=== PATIENT | male | born 1990 | race Caucasian/White ===

== ENCOUNTER 2018-11-10 02:50 | Emergency (ER) | payer SELFPAY ==
[2018-11-10 03:04] VITALS: BP 127/73
[2018-11-10] MEDS ORDERED: Ondansetron 4 MG/2 ML SDV IVPUSH ONE (03:20)
--- NOTE | 2018-11-10 03:25 | EDM.PDOC ---
ED HPI GENERAL MEDICAL PROBLEM - General Chief Complaint: Abdominal Pain Stated Complaint: VOMITING/DIARRHEA/FEVER Time Seen by Provider: 11/10/18 02:55 Source of Information: Reports: Patient History Limitations: Reports: No Limitations - History of Present Illness INITIAL COMMENTS - FREE TEXT/NARRATIVE: This is a 28-year-old male. Onset around 8 PM with explosive diarrhea and nausea and vomiting and abdominal cramps. He says he can't keep anything down really thirsty. He says before coming to the ER he had a fever of 102 at home but he didn't take anything when he got here his fever was 98.5. He says he has been having persistent diarrhea and nausea and vomiting since 8 PM that seems to be nonstop and he can't drink his fluids is wanting to. He denies any blood in the vomitus or the diarrhea. He denies any previous sore throat though it's sore now from the vomiting. He denies any nasal congestion. He says he ate some pizza tonight but doesn't think that was the problem. No cough. Abdominal Pain Score (Numeric/FACES): 9 - Related Data Allergies Allergy/AdvReac Type Severity Reaction Status Date / Time No Known Allergies Allergy Verified 11/10/18 03:03 Home Meds: Home Meds . [No Known Home Meds] 11/10/18 [History] Past Medical History - Past Health History Medical/Surgical History: Denies Medical/Surgical History Social & Family History - Family History Family Medical History: Noncontributory - Tobacco Use Smoking Status *Q: Current Every Day Smoker Years of Tobacco use: 10 Packs/Tins Daily: 0.1 - Caffeine Use Caffeine Use: Reports: Coffee - Recreational Drug Use Recreational Drug Use: No - Living Situation & Occupation Living situation: Reports: Occupation: Employed ED ROS GENERAL - Review of Systems Review Of Systems: See Below Constitutional: Reports: Fever, Chills, Malaise HEENT: Reports: No Symptoms Respiratory: Denies: Shortness of Breath, Cough Cardiovascular: Denies: Chest Pain Endocrine: Reports: No Symptoms GI/Abdominal: Reports: Abdominal Pain, Diarrhea, Nausea, Vomiting. Denies: Bloody Stool, Hematemesis : Reports: No Symptoms Musculoskeletal: Reports: No Symptoms Skin: Reports: No Symptoms Neurological: Reports: No Symptoms Psychiatric: Reports: No Symptoms Hematologic/Lymphatic: Reports: No Symptoms ED EXAM, GI/ABD - Physical Exam Exam: See Below Exam Limited By: No Limitations General Appearance: Alert, WD/WN, Mild Distress Eyes: Bilateral: Normal Appearance Ears: Normal External Exam Nose: Normal Inspection Throat/Mouth: Normal Inspection, Normal Lips, Normal Voice, No Airway Compromise Head: Normocephalic Neck: Supple Respiratory/Chest: No Respiratory Distress, Lungs Clear, Normal Breath Sounds Cardiovascular: Regular Rate, Rhythm, Tachycardia GI/Abdominal Exam: Soft, Other (Soreness of the abdomen, no masses no rebound no guarding is noted) Back Exam: Normal Inspection, Full Range of Motion Extremities: Normal Inspection, Normal Range of Motion Neurological: Alert, Oriented Psychiatric: Normal Affect, Normal Mood Skin Exam: Warm, Other (Slightly diaphoretic but he is under 3 blankets) Course - Vital Signs Last Recorded V/S: Last Vital Signs Temp 98.5 F 11/10/18 03:01 Pulse 115 H 11/10/18 03:01 Resp 16 11/10/18 03:01 BP 127/73 11/10/18 03:01 Pulse Ox 100 11/10/18 03:01 - Orders/Labs/Meds Orders: Active Orders 24 hr Category Date Time Status Chest 2V [CR] Stat Exams 11/10/18 03:19 Taken CULTURE STREP A CONFIRMATION [RM] Stat Lab 11/10/18 03:52 Results Rapid Strep w/culture conf [STREP SCRN A RAPID W CULT Lab 11/10/18 03:52 Results CONF] [RM] Stat Ondansetron [Zofran ODT] Med 11/10/18 06:41 Once 4 mg PO ONETIME ONE Sodium Chloride 0.9% [Normal Saline] 1,000 ml Med 11/10/18 03:30 Active IV ASDIRECTED Medication Orders Sodium Chloride (Normal Saline) 1,000 mls @ 1,000 mls/hr IV ASDIRECTED USMAN Last Admin: 11/10/18 03:42 Dose: 1,000 mls/hr Labs: Laboratory Tests 11/10/18 11/10/18 11/10/18 Range/Units 03:40 03:40 03:40 WBC 18.19 H (4.23-9.07) K/mm3 RBC 6.20 H (4.63-6.08) M/mm3 Hgb 18.7 H (13.7-17.5) gm/L Hct 54.1 H (40.1-51.0) % MCV 87.3 (79.0-92.2) fl MCH 30.2 (25.7-32.2) pg MCHC 34.6 (32.2-35.5) g/dl RDW Std Deviation 40.3 (35.1-43.9) fL Plt Count 306 (163-337) K/mm3 MPV 9.7 (9.4-12.3) fl Neut % (Auto) 86.8 H (34.0-67.9) % Lymph % (Auto) 4.4 L (21.8-53.1) % [place] % (Auto) 8.1 (5.3-12.2) % Eos % (Auto) 0.1 L (0.8-7.0) Baso % (Auto) 0.2 (0.1-1.2) % Neut # (Auto) 15.79 H (1.78-5.38) K/mm3 Lymph # (Auto) 0.80 L (1.32-3.57) K/mm3 [place] # (Auto) 1.48 H (0.30-0.82) K/mm3 Eos # (Auto) 0.01 L (0.04-0.54) K/mm3 Baso # (Auto) 0.04 (0.01-0.08) K/mm3 Manual Slide Review Abnormal smear Sodium 139 (136-145) mEq/L Potassium 3.8 (3.5-5.1) mEq/L Chloride 97 L (98-107) mEq/L Carbon Dioxide 26 (21-32) mEq/L Anion Gap 19.8 H (5-15) BUN 22 H (7-18) mg/dL Creatinine 1.6 H (0.7-1.3) mg/dL Est Cr Clr Drug Dosing 54.63 mL/min Estimated GFR (MDRD) 51 (>60) mL/min BUN/Creatinine Ratio 13.8 L (14-18) Glucose 135 H (74-106) mg/dL Lactic Acid 2.8 H (0.4-2.0) mmol/L Calcium 10.7 H (8.5-10.1) mg/dL Total Bilirubin 1.4 H (0.2-1.0) mg/dL AST 22 (15-37) U/L ALT 30 (16-63) U/L Alkaline Phosphatase 108 (46-116) U/L Total Protein 9.6 H (6.4-8.2) g/dl Albumin 5.4 H (3.4-5.0) g/dl Globulin 4.2 gm/dL Albumin/Globulin Ratio 1.3 (1-2) Urine Color (Yellow) Urine Appearance (Clear) Urine pH (5.0-8.0) Ur Specific [place] (1.005-1.030) Urine Protein (Negative) Urine Glucose (UA) (Negative) Urine Ketones (Negative) Urine Occult Blood (Negative) Urine Nitrite (Negative) Urine Bilirubin (Negative) Urine Urobilinogen (0.2-1.0) Ur Leukocyte Esterase (Negative) Urine RBC (0-5) /hpf Urine WBC (0-5) /hpf Ur Epithelial Cells (0-5) /hpf Urine Bacteria (FEW) /hpf Hyaline Casts (0-5) /lpf Urine Mucus (FEW) /hpf 11/10/18 Range/Units 04:54 WBC (4.23-9.07) K/mm3 RBC (4.63-6.08) M/mm3 Hgb (13.7-17.5) gm/L Hct (40.1-51.0) % MCV (79.0-92.2) fl MCH (25.7-32.2) pg MCHC (32.2-35.5) g/dl RDW Std Deviation (35.1-43.9) fL Plt Count (163-337) K/mm3 MPV (9.4-12.3) fl Neut % (Auto) (34.0-67.9) % Lymph % (Auto) (21.8-53.1) % [place] % (Auto) (5.3-12.2) % Eos % (Auto) (0.8-7.0) Baso % (Auto) (0.1-1.2) % Neut # (Auto) (1.78-5.38) K/mm3 Lymph # (Auto) (1.32-3.57) K/mm3 [place] # (Auto) (0.30-0.82) K/mm3 Eos # (Auto) (0.04-0.54) K/mm3 Baso # (Auto) (0.01-0.08) K/mm3 Manual Slide Review Sodium (136-145) mEq/L Potassium (3.5-5.1) mEq/L Chloride (98-107) mEq/L Carbon Dioxide (21-32) mEq/L Anion Gap (5-15) BUN (7-18) mg/dL Creatinine (0.7-1.3) mg/dL Est Cr Clr Drug Dosing mL/min Estimated GFR (MDRD) (>60) mL/min BUN/Creatinine Ratio (14-18) Glucose (74-106) mg/dL Lactic Acid (0.4-2.0) mmol/L Calcium (8.5-10.1) mg/dL Total Bilirubin (0.2-1.0) mg/dL AST (15-37) U/L ALT (16-63) U/L Alkaline Phosphatase (46-116) U/L Total Protein (6.4-8.2) g/dl Albumin (3.4-5.0) g/dl Globulin gm/dL Albumin/Globulin Ratio (1-2) Urine Color Dark yellow (Yellow) Urine Appearance Clear (Clear) Urine pH 5.5 (5.0-8.0) Ur Specific [place] 1.025 (1.005-1.030) Urine Protein 1+ H (Negative) Urine Glucose (UA) Negative (Negative) Urine Ketones 1+ H (Negative) Urine Occult Blood 2+ H (Negative) Urine Nitrite Negative (Negative) Urine Bilirubin 1+ H (Negative) Urine Urobilinogen 0.2 (0.2-1.0) Ur Leukocyte Esterase Negative (Negative) Urine RBC 0-5 (0-5) /hpf Urine WBC 0-5 (0-5) /hpf Ur Epithelial Cells Not seen (0-5) /hpf Urine Bacteria Few (FEW) /hpf Hyaline Casts 10-20 H (0-5) /lpf Urine Mucus Many H (FEW) /hpf Meds: Medications Generic Name Dose Route Start Last Admin Trade Name Freq PRN Reason Stop Dose Admin Sodium Chloride 1,000 mls @ 1,000 mls/hr 11/10/18 03:30 11/10/18 03:42 Normal Saline IV 1,000 mls/hr ASDIRECTED USMAN Administration Discontinued Medications Generic Name Dose Route Start Last Admin Trade Name Roxana PRN Reason Stop Dose Admin Sodium Chloride 1,000 mls @ 999 mls/hr 11/10/18 04:25 11/10/18 04:52 Normal Saline IV 11/10/18 05:25 999 mls/hr ONETIME ONE Administration Ondansetron HCl 4 mg 11/10/18 03:20 11/10/18 03:42 Zofran IVPUSH 11/10/18 03:21 4 mg ONETIME ONE Administration - Radiology Interpretation Free Text/Narrative:: Chest x-ray does not show any acute infiltrates - Re-Assessments/Exams Free Text/Narrative Re-Assessment/Exam: 11/10/18 05:37 Patient has been sleeping soundly since he got here he's had no nausea and vomiting and no diarrhea since entering the ER. I spoke to him regarding the chest x-ray as well as the lab results. He does appear to be dehydrated and I believe this white count is related to D margination from the nausea and the vomiting. 11/10/18 06:24 The patient is awoken and he is now drinking fluids stating he feels a ton better. He has not had any diarrhea he's had no more nausea and vomiting. 11/10/18 06:42 Patient is doing well he drank all the 16 ounces of water and says he feels good. His flu and strep test were negative. I'll send him home with 24 mg Zofran to use every 6 hours as needed for nausea. He knows to take it easy to rest and sleep today and to drink lots of fluids and avoid meats vegetables and cheese for at least 24-48 hours. Departure - Departure Time of Disposition: 06:43 Disposition: Home, Self-Care 01 Condition: Good Clinical Impression: Dehydration, moderate Nausea and vomiting Qualifiers: Vomiting type: unspecified Vomiting Intractability: non-intractable Qualified Code(s): R11.2 - Nausea with vomiting, unspecified Diarrhea Qualifiers: Diarrhea type: unspecified type Qualified Code(s): R19.7 - Diarrhea, unspecified - Discharge Information *PRESCRIPTION DRUG MONITORING PROGRAM REVIEWED*: Not Applicable *COPY OF PRESCRIPTION DRUG MONITORING REPORT IN PATIENT MU: Not Applicable Instructions: Nausea, Adult Referrals: PCP,None [Primary Care Provider] - Forms: ED Department Discharge Additional Instructions: Continue to rest and sleep as much as possible for the next 24 hours, continue to drink lots of fluids and water but no sodas or caffeine or coffee, use the Zofran every 6 hours as needed for nausea, you probably have a little more diarrhea but as long as you are drinking fluids that should not be a problem, no vegetables, meats or cheese for at least 24-48 hours since they are hard to digest and they will make you vomit, if your symptoms worsen and your vomiting and having diarrhea again return to the ER, follow-up with your family doctor later this week for recheck or return to the ER as needed - My Orders Last 24 Hours: My Active Orders 11/10/18 03:19 Chest 2V [CR] Stat 11/10/18 03:30 Sodium Chloride 0.9% [Normal Saline] 1,000 ml IV ASDIRECTED 11/10/18 03:52 CULTURE STREP A CONFIRMATION [RM] Stat Rapid Strep w/culture conf [STREP SCRN A RAPID W CULT CONF] [RM] Stat 11/10/18 06:41 Ondansetron [Zofran ODT] 4 mg PO ONETIME ONE - Assessment/Plan Last 24 Hours: My Active Orders 11/10/18 03:19 Chest 2V [CR] Stat 11/10/18 03:30 Sodium Chloride 0.9% [Normal Saline] 1,000 ml IV ASDIRECTED 11/10/18 03:52 CULTURE STREP A CONFIRMATION [RM] Stat Rapid Strep w/culture conf [STREP SCRN A RAPID W CULT CONF] [RM] Stat 11/10/18 06:41 Ondansetron [Zofran ODT] 4 mg PO ONETIME ONE
[2018-11-10] MEDS ORDERED: Sodium Chloride 0.9% 1,000 ML IV SCH (03:30)
[2018-11-10] MEDS ORDERED: Sodium Chloride 0.9% 1,000 ML IV ONE (04:25)
[2018-11-10] MEDS: Ondansetron 4 MG Tab.DIS PO ONE (06:50)
--- NOTE | 2018-11-10 15:36 | CR ---
Chest: Two views of the chest were obtained. Comparison: Prior chest x-ray of 05/15/15. Heart size and mediastinum are normal. Lungs are clear with no acute parenchymal change. Bony structures are unremarkable. Impression: 1. Nothing acute is seen on two-view chest x-ray. Diagnostic code #1
== END 2018-11-10 06:55 | disposition home or self-care (01) ==
LOC: JD.ED 02:50
DX: E86.0 Dehydration (principal); R19.7 Diarrhea, unspecified; R11.2 Nausea with vomiting, unspecified; F17.210 Nicotine dependence, cigarettes, uncomplicated
CPT/HCPCS: 36415; 71046; 80053; 81001; 83605; 85025; 87081; 87430; 87804; 96361; 96374; 99284; A9270; J2405; J7040

== ENCOUNTER 2021-04-18 05:24 | Emergency (ER) | payer SELFPAY ==
[2021-04-18 05:46] VITALS: BP 120/74; PULSE 81
--- NOTE | 2021-04-18 06:11 | EDM.PDOC ---
ED HPI GENERAL MEDICAL PROBLEM - General Chief Complaint: Cardiovascular Problem Stated Complaint: [facility] Time Seen by Provider: 04/18/21 05:38 Source of Information: Reports: Patient History Limitations: Reports: No Limitations - History of Present Illness INITIAL COMMENTS - FREE TEXT/NARRATIVE: Patient is a 30-year-old male who is incarcerated and while having breakfast in detention today felt nauseous and then was noted to become very pale and was feeling very lightheaded at which time they took his blood pressure with his systolic blood pressure being 77. Patient was recently restarted on prazosin which he takes for night terrors but is on a higher dose than what he was on previously. Patient has no symptoms currently and was able to walk in the emergency department without any lightheadedness or nausea. Patient has not had similar symptoms in the past. He denies having any abdominal pain or bloody or tarry stools. Onset: Today, Sudden Duration: Resolved Prior to Arrival Associated Symptoms: Reports: Other (Nausea with pallor and lightheadedness.) - Related Data Allergies Allergy/AdvReac Type Severity Reaction Status Date / Time No Known Allergies Allergy Verified 04/18/21 05:46 Home Meds: Home Meds Prazosin HCl [Prazosin] 2 mg PO DAILY 04/18/21 [History] QUEtiapine Fumarate [Seroquel] 50 mg PO DAILY 04/18/21 [History] Venlafaxine HCl [Venlafaxine ER] 37.5 mg PO DAILY 04/18/21 [History] Past Medical History - Past Health History Medical/Surgical History: Denies Medical/Surgical History Social & Family History - Family History Family Medical History: No Pertinent Family History - Tobacco Use Tobacco Use Status *Q: Current Every Day Tobacco User Years of Tobacco use: 18 Packs/Tins Daily: 1 Used Tobacco, but Quit: No Second Hand Smoke Exposure: No - Caffeine Use Caffeine Use: Reports: Tea - Recreational Drug Use Recreational Drug Use: Yes Drug Use in Last 12 Months: Yes Recreational Drug Type: Reports: Marijuana/Hashish, Methamphetamine Recreational Drug Use Frequency: Daily - Living Situation & Occupation Living situation: Reports: Occupation: Employed ED ROS GENERAL - Review of Systems Review Of Systems: Comprehensive ROS is negative, except as noted in HPI. ED EXAM, GENERAL - Physical Exam Exam: See Below Exam Limited By: No Limitations General Appearance: Alert, No Apparent Distress Throat/Mouth: Normal Oropharynx Head: Atraumatic, Normocephalic Neck: Normal Inspection Respiratory/Chest: No Respiratory Distress, Lungs Clear, Normal Breath Sounds Cardiovascular: Regular Rate, Rhythm, No JVD GI/Abdominal: Normal Bowel Sounds, Soft, Non-Tender, No Organomegaly, No Distention Back Exam: Normal Inspection Extremities: Normal Inspection Neurological: Alert, Oriented Psychiatric: Normal Affect, Normal Mood Skin Exam: Warm, Dry, Normal Color Course - Vital Signs Text/Narrative:: Patient's current blood pressure is 120/74. He is asymptomatic. I believe he had either a drug reaction to prazosin or more likely a vasovagal episode secondary to being nauseous while eating his breakfast. I am recommending he does not take another dose of the prazosin until he is is seen by his PCP. He may need to have multiple blood pressures taken during the day if he is continued on the prazosin. Last Recorded V/S: Last Vital Signs Temp 97.2 F 04/18/21 05:37 Pulse 81 04/18/21 05:37 Resp 18 04/18/21 05:37 BP 120/74 04/18/21 05:37 Pulse Ox 98 04/18/21 05:37 Departure - Departure Time of Disposition: 06:11 Disposition: DC/Tfer to Other 70 Reason for Transfer *Q: Other (Hypotension.) Condition: Good Clinical Impression: Vasovagal episode, Hypotension, Medication reaction Instructions: Hypotension Referrals: PCP,None [Primary Care Provider] - Additional Instructions: Hold your prazosin until seen by your PCP. If restarted on prazosin I am recommending that you have your blood pressure monitor 4 times a day until we are certain this is not a reaction to your medication. Return to ER symptoms are worse. Sepsis Event Note (ED) - Evaluation Sepsis Screening Result: No Definite Risk - Focused Exam Vital Signs: Vital Signs Temp Pulse Resp BP Pulse Ox 04/18/21 05:37 97.2 F 81 18 120/74 98
== END 2021-04-18 06:20 | disposition other institution (70) ==
LOC: JD.ED 05:24
DX: I95.9 Hypotension, unspecified (principal); F17.210 Nicotine dependence, cigarettes, uncomplicated
CPT/HCPCS: 99284

== ENCOUNTER 2022-05-13 15:19 | Emergency (ER) | payer SELFPAY ==
[2022-05-13 15:36] VITALS: BP 136/91; PULSE 96
== END 2022-05-13 17:00 | disposition left against medical advice (07) ==
LOC: JD.ED 15:19
DX: Z53.21 Procedure and treatment not carried out due to patient leaving prior to being seen by health care provider (principal)
CPT/HCPCS: 82947

== ENCOUNTER 2022-05-30 09:58 | Emergency (ER) | payer MEDICAID ==
[2022-05-30 11:30] LABS: CORONAVIRUS COVID-19 NAA NEGATIVE (NEGATIVE)
[2022-05-30 13:06] VITALS: BP 115/88; PULSE 82
== END 2022-05-30 13:00 | disposition home or self-care (01) ==
LOC: JD.ED 09:58
DX: R42 Dizziness and giddiness (principal); Z20.822 Contact with and (suspected) exposure to COVID-19
CPT/HCPCS: 0240U; 36415; 80053; 80307; 83735; 84443; 84484; 85025; 85379; 93005; 93010; 93225; 93226; 99284; 99285; A9270-GY

== ENCOUNTER 2024-06-23 11:59 | Emergency (ER) | payer SELFPAY ==
[2024-06-23] MEDS: Dextrose 5%-0.9% NaCl 1,000 ML IV SCH (13:12)
[2024-06-23] MEDS: ceFAZolin 1 GM in Sodium Chloride 0.9% 50 ML IV ONE (13:12)
[2024-06-23] MEDS: Metoclopramide 10 MG/2 ML SDV IVPUSH ONE (13:13)
[2024-06-23] MEDS: HYDROmorphone 1 MG/ML Syringe IVPUSH ONE (13:13)
[2024-06-23] MEDS: ceFAZolin 1 GM Vial IM ONE (13:14)
[2024-06-23] MEDS ORDERED: Lidocaine 1% 10 ML MDV ONE (15:07)
[2024-06-23] MEDS: HYDROmorphone 0.5 MG/0.5 ML Syringe IVPUSH ONE (15:11)
[2024-06-23] MEDS: Lidocaine 1% 10 ML MDV INJECT ONE (15:11)
[2024-06-23 15:57] VITALS: BP 122/73; PULSE 70
== END 2024-06-23 16:05 | disposition home or self-care (01) ==
LOC: JD.ED 11:59
DX: S40.012A Contusion of left shoulder, initial encounter (principal); S02.842A Fracture of lateral orbital wall, left side, initial encounter for closed fracture; S02.40DA Maxillary fracture, left side, initial encounter for closed fracture; S16.1XXA Strain of muscle, fascia and tendon at neck level, initial encounter
CPT/HCPCS: 12001; 12011; 70450; 70486; 71045; 72125; 72170; 73130; 96361; 96365; 96375; 96376; 99285; J0690; J1170; J2765; J3490; J7042; 99284

== ENCOUNTER 2024-06-30 12:21 | Emergency (ER) | payer SELFPAY ==
[2024-06-30 14:37] VITALS: BP 137/84; PULSE 82
== END 2024-06-30 16:09 ==
LOC: JD.ED 12:21
DX: S01.01XD Laceration without foreign body of scalp, subsequent encounter (principal); S01.412D Laceration without foreign body of left cheek and temporomandibular area, subsequent encounter; S01.511D Laceration without foreign body of lip, subsequent encounter; Z48.02 Encounter for removal of sutures
CPT/HCPCS: 99281

== ENCOUNTER 2024-09-27 22:34 | Emergency (ER) | payer SELFPAY ==
[2024-09-27 22:43] VITALS: BP 135/75; PULSE 85
[2024-09-27] MEDS: Metoclopramide 10 MG/2 ML SDV IVPUSH ONE (23:38)
[2024-09-27] MEDS: HYDROmorphone 1 MG/ML Syringe IM ONE (23:49)
[2024-09-27] MEDS: Metoclopramide 10 MG/2 ML SDV IM ONE (23:49)
== END 2024-09-28 00:01 | disposition home or self-care (01) ==
LOC: JD.ED 22:34
DX: K02.9 Dental caries, unspecified (principal); Z79.899 Other long term (current) drug therapy
CPT/HCPCS: 96372; 99282; J1171; J2765; 99283

== ENCOUNTER 2024-12-24 19:04 | Emergency (ER) | payer OTHER ==
[2024-12-24 19:16] VITALS: BP 149/78; PULSE 79
[2024-12-24] MEDS: Proparacaine 0.5% Ophth Soln 15 ML Bottle ONE (19:59)
[2024-12-24] MEDS: Fluorescein 1 MG Ophth Strip ONE (19:59)
[2024-12-24] MEDS: Ofloxacin 0.3% Ophth Soln 5 ML Bottle ONE (20:01)
== END 2024-12-24 20:13 | disposition home or self-care (01) ==
LOC: JD.ED 19:04
DX: S05.02XA Injury of conjunctiva and corneal abrasion without foreign body, left eye, initial encounter (principal); Z79.899 Other long term (current) drug therapy; X58.XXXA Exposure to other specified factors, initial encounter; Y93.89 Activity, other specified; Y99.0 Civilian activity done for income or pay
CPT/HCPCS: 99283; A9270-GY; J3490

== ENCOUNTER 2024-12-24 22:16 | Emergency (ER) | payer OTHER ==
[2024-12-25 00:14] VITALS: BP 116/80; PULSE 78
== END 2024-12-25 00:13 | disposition home or self-care (01) ==
LOC: JD.ED 22:16
DX: H57.89 Other specified disorders of eye and adnexa (principal); Z79.899 Other long term (current) drug therapy
CPT/HCPCS: 99283

== ENCOUNTER 2025-04-10 12:01 | Emergency (ER) | payer OTHER ==
[2025-04-10] MEDS: Ketorolac 10 MG Tab PO ONE (12:23)
[2025-04-10 14:10] VITALS: BP 138/92; PULSE 81
== END 2025-04-10 13:30 | disposition home or self-care (01) ==
LOC: JD.ED 12:01
DX: S52.121A Displaced fracture of head of right radius, initial encounter for closed fracture (principal); V29.408A Other motorcycle driver injured in collision with unspecified motor vehicles in traffic accident, initial encounter; Y93.89 Activity, other specified
CPT/HCPCS: 73080; 73090; 99284; A9270